=== PATIENT | male | born 1985 | race Caucasian/White ===

== ENCOUNTER 2017-02-05 18:56 | Emergency (ER) | payer OTHER ==
[~2017-02-05] VITALS: Ht 170.2 cm; Wt 65.8 kg
[~2017-02-05 18:56] MED LIST: ELIMITE 5%; GENTAK 3 MG/M3 MG/M1 OP; HYDROXYZINE HCL25 M1 PO; KEFLEX500 MG PO; NORCO 5-325 TA1 EACH PO; PERCOCET 5-3251 EACH PO
[2017-02-05] MEDS ORDERED: HYDROCODONE-AP1 EAC6 PO (21:09)
[2017-02-05] MEDS ORDERED: PROBIOTIC1 EAC1 PO (21:12)
[2017-02-05] MEDS ORDERED: PRILOSEC 20 MG20 MG PO (21:12)
[2017-02-05 21:30] VITALS: BP 124/92
== END 2017-02-05 21:39 | disposition home or self-care (01) ==
LOC: ER 18:56
DX: S00.12XA Contusion of left eyelid and periocular area, initial encounter (principal); S09.90XA Unspecified injury of head, initial encounter; F17.210 Nicotine dependence, cigarettes, uncomplicated; F10.99 Alcohol use, unspecified with unspecified alcohol-induced disorder; Z86.59 Personal history of other mental and behavioral disorders; Y04.2XXA Assault by strike against or bumped into by another person, initial encounter; Y93.89 Activity, other specified; Y92.481 Parking lot as the place of occurrence of the external cause; Y99.8 Other external cause status

== ENCOUNTER 2017-02-24 18:03 | Emergency (ER) | payer OTHER ==
[~2017-02-24] VITALS: Ht 170.2 cm; Wt 65.8 kg
[~2017-02-24 18:03] MED LIST changes: +HYDROCODONE-AP1 EAC6 PO; +PRILOSEC 20 MG20 MG PO; +PROBIOTIC1 EAC1 PO
[2017-02-24 18:04] VITALS: BP 131/80
[2017-02-24] MEDS ORDERED: DOXYCYCLINE 10100 MG PO (18:48)
[2017-02-24] MEDS ORDERED: NAPROSYN500 MG PO (18:48)
== END 2017-02-24 19:15 | disposition home or self-care (01) ==
LOC: ER 18:03
DX: S40.861A Insect bite (nonvenomous) of right upper arm, initial encounter (principal); L03.113 Cellulitis of right upper limb; F17.210 Nicotine dependence, cigarettes, uncomplicated; F10.99 Alcohol use, unspecified with unspecified alcohol-induced disorder; Z91.5 Personal history of self-harm; W57.XXXA Bitten or stung by nonvenomous insect and other nonvenomous arthropods, initial encounter; Y93.89 Activity, other specified; Y92.89 Other specified places as the place of occurrence of the external cause; Y99.8 Other external cause status

== ENCOUNTER 2017-02-27 14:02 | Emergency (ER) | payer OTHER ==
[~2017-02-27] VITALS: Ht 170.2 cm; Wt 65.8 kg
[~2017-02-27 14:02] MED LIST changes: +DOXYCYCLINE 10100 MG PO; +NAPROSYN500 MG PO
[2017-02-27] MEDS ORDERED: BACTRIM DS TAB1 EACH PO (14:28)
[2017-02-27] MEDS ORDERED: KEFLEX500 MG PO (14:28)
[2017-02-27 14:53] VITALS: BP 127/69
== END 2017-02-27 14:56 | disposition home or self-care (01) ==
LOC: ER 14:02
DX: L02.413 Cutaneous abscess of right upper limb (principal); F17.210 Nicotine dependence, cigarettes, uncomplicated; F10.99 Alcohol use, unspecified with unspecified alcohol-induced disorder; Z91.19 Patient's noncompliance with other medical treatment and regimen; Z91.5 Personal history of self-harm

== ENCOUNTER 2018-01-13 03:02 | Emergency (ER) | payer OTHER ==
[~2018-01-13] VITALS: Ht 170.2 cm; Wt 65.8 kg
[~2018-01-13 03:02] MED LIST changes: +BACTRIM DS TAB1 EACH PO
[2018-01-13] MEDS ORDERED: BACTRIM DS TAB1 EACH PO (04:47)
[2018-01-13] MEDS ORDERED: NORCO 5-325 TA1 EACH PO (04:47)
[2018-01-13] MEDS ORDERED: KEFLEX500 M1 PO (04:47)
[2018-01-13 05:03] VITALS: BP 130/80
== END 2018-01-13 05:04 | disposition home or self-care (01) ==
LOC: ER 03:02
DX: K13.0 Diseases of lips (principal); F17.210 Nicotine dependence, cigarettes, uncomplicated

== ENCOUNTER 2018-01-13 23:55 | Inpatient (IN) | payer OTHER ==
[~2018-01-13] VITALS: Ht 170.2 cm; Wt 67.7 kg
--- NOTE | ~2018-01-13 | HC ---
[facility] [place] [address] CONSULTATION Name: DARRIN BELL Buffy Room #: 351-P [facility]..#: [id number] Admission: 01/14/18 Attend Phys: Won Umanzor MD Discharge: 01/16/18 Date of : 87 Report #: [id number] THIS REPORT FOR: //name// CC: [facility] physician/PCP Won Umanzor DATE OF SERVICE: 01/16/2018 GENERAL SURGERY CONSULTATION REFERRING PROVIDER: Won Umanzor M.D. REASON FOR CONSULTATION: Lip abscess. HISTORY OF PRESENT ILLNESS: The patient is a 32-year-old male who was admitted with pain, swelling and redness to his right upper lip for several days prior to admission. The patient was initially treated with cephalexin, which was not successful and he developed lower abdominal pain radiating into his testicles, for which evaluation showed a ureteral stone as the causative factor of his discomfort. The patient has been seen by Infectious Disease and has been on appropriate antibiotic regimen and has a past history of MRSA of the right arm soft tissue wound in the past. His right upper lip wound has coalesced into what appears to be a drainable abscess and as such, we were asked to evaluate. PAST MEDICAL HISTORY: Substance abuse, TMJ and a prior suicide attempt. CURRENT MEDICATIONS: Pepcid, Flomax, Ativan, morphine, Compazine and vancomycin. ALLERGIES: No known drug allergies. SOCIAL HISTORY: He smokes 1 pack of cigarettes daily, drinks alcohol occasionally. Denies illicit drug use. FAMILY HISTORY: Reviewed and noncontributory. REVIEW OF SYSTEMS: GENERAL: The patient denies nocturnal fevers or chills. HEENT: No change in vision. No change in hearing. NECK: No swelling or difficulty swallowing. HEART: No chest pain or palpitations. LUNGS: No cough or shortness of breath. ABDOMEN: No nausea, no vomiting. GENITOURINARY: No dysuria or hematuria. ENDOCRINE: No polyuria or polydipsia. HEMATOLOGIC: No history of bleeding or easy bruising. [facility] [address] [place] [address] CONSULTATION Name: DARRIN BELL Room #: 351-P [facility] IN ..#: [id number] Admission: 01/14/18 Attend Phys: Won Umanzor MD Discharge: 01/16/18 Date of : 87 Report #: [id number] EXTREMITIES: No history of weakness or limited range of motion. NEUROLOGIC: No history of syncope or near syncopal episodes. SKIN AND INTEGUMENT: History of prior MRSA arm infection. PSYCHIATRIC: No history of anxiety or depression, but he does have a prior suicide attempt. PHYSICAL EXAMINATION: VITAL SIGNS: Temperature 98.8, pulse 66, respirations 16 and blood pressure 130/80. He is 5 feet 7 inches tall and weighs 149 pounds. GENERAL: Alert and oriented, in no acute distress. HEENT: Normocephalic, atraumatic. Pupils equal, round and reactive to light. NECK: Supple, without lymphadenopathy. Trachea midline. HEART: Regular rate and rhythm. LUNGS: Clear to auscultation bilaterally. ABDOMEN: Soft, nondistended and nontender. GENITOURINARY: Normal external male genitalia with right flank CVA tenderness. EXTREMITIES: No clubbing, cyanosis or edema. NEUROLOGIC: Cranial nerves 2-12 are grossly intact. PSYCHIATRIC: Normal mood and affect. SKIN AND INTEGUMENT: Right upper lip swelling with abscess that appears drainable at this time. LABORATORY AND X-RAY DATA: CBC shows white blood cell count of 11.3 thousand, hemoglobin 14.3 and platelets 252,000. Creatinine 1.2. MRSA positive. Drug screen positive for methamphetamines, opiates and marijuana. ASSESSMENT AND PLAN: A 32-year-old male who appears to be a drug abuser and has prior methicillin-resistant Staphylococcus aureus abscesses, who presents with right facial swelling that has now coalesced and what appears to be a drainable abscess of the right upper lip. In addition, the patient has a ureteral stone, for which Urology is managing the patient. RECOMMENDATIONS: Recommendation at this time is to continue current care with IV fluids and antibiotics per the direction of Infectious Disease. We will make him n.p.o. after midnight and proceed to the operating room for incision and drainage of this lip abscess at the first available opportunity. I sincerely appreciate this consult. We will follow along and leave any further recommendations in the patient's chart as appropriate. <ELECTRONICALLY SIGNED> By: Onel Ghosh MD, FACS 01/17/18 0737 [id number] Onel Ghosh MD, FACS /nt
--- NOTE | ~2018-01-13 | HC ---
[facility] [place] [address] CONSULTATION Name: DARRIN BELL Buffy Room #: 351-P [facility] IN M.R.#: [id number] Admission: 01/14/18 Attend Phys: Won Umanzor MD Discharge: Date of : 87 Report #: [id number] THIS REPORT FOR: //name// CC: [facility] physician/PCP Won Umanzor DATE OF SERVICE: 01/14/2018 REASON FOR CONSULTATION: I was asked to evaluate concerning right facial soft tissue infection. HISTORY OF PRESENT ILLNESS: The patient is a 32-year-old who was admitted with pain, swelling and redness involving his right upper lip. He had been noticing this onset 4 days ago. He had been to the Emergency Room, placed on cephalexin. No improvement, returns now not only with facial swelling, but also pain in his abdomen that radiates down into his testicles. This was acute onset. He has had blood in his urine. CT scan shows evidence of a ureteral stone. His antibiotic treatment has included Bactrim and cephalexin. He has had a previous I and D of his right arm soft tissues several months ago with methicillin-resistant Staphylococcus aureus. REVIEW OF SYSTEMS: Notes no headache, cough, sputum, nausea, vomiting, diarrhea. He does street drugs with drug screen positive for marijuana, methamphetamines and opiates. ALLERGIES: None known. MEDICATIONS: As noted on his MAR, which were reviewed, now on clindamycin. PAST MEDICAL HISTORY: Suicide attempt, TMJ, substance abuse, abscess as noted. FAMILY HISTORY: Noncontributory. SOCIAL HISTORY: As noted above with the addition of tobacco use and past alcohol use. Currently unemployed. PHYSICAL EXAMINATION: VITAL SIGNS: He is afebrile, hemodynamically stable. GENERAL: Alert and cooperative. SKIN: Hands were very dirty with grease. HEENT: Right facial swelling involving the right upper lip. Several areas of excoriation superior to this on the cheek. Dentition in fair repair. Mouth is otherwise unremarkable. Neck was supple. Eyes unremarkable. Cranial nerves intact. NECK: Supple. No thyromegaly or mass. CHEST: Clear. [facility] [address] [place] [address] CONSULTATION Name: DARRIN BELL Room #: 351-P [facility] IN .R.#: [id number] Admission: 01/14/18 Attend Phys: Won Umanzor MD Discharge: Date of : 87 Report #: [id number] CARDIOVASCULAR: Heart regular. No murmurs, gallop or rub. ABDOMEN: Soft, nontender, no hepatosplenomegaly or mass appreciated. Some tenderness in the right CVA region. EXTREMITIES: Unremarkable. LABORATORY STUDIES: CT scan shows mild right hydronephrosis and hydroureter secondary to a 3.6 mm calculus impacted in the distal right ureter. CT of the face shows extensive soft tissue edema throughout the right aspect of the face and upper lip region. No definite abscess. Drug screen as noted above. Urinalysis with 2+ ketones, 3+ blood, rbc's. Hemoglobin 15.8, white count 22,000, platelet count 293,000. Sodium 136, potassium 3.4, bicarbonate 23, creatinine 1.5. Liver function test normal. IMPRESSION: A 32-year-old with obstructed ureter from a kidney stone with hematuria and acute kidney injury. In addition, has soft tissue infection of his right upper lip. CT scan shows no definite abscess. On evaluation, there is fluctuant area, but no definite abscess yet appreciated. He has diffuse erythema and thickening throughout the right upper lip region. I am suspecting methicillin-resistant Staphylococcus aureus, most likely in etiology. PLAN: Would recommend vancomycin and apply heat to the region. Likely need incision and drainage procedure. We will see how it looks tomorrow and have General Surgery evaluate. As far as his kidney stone goes, he will continue with hydration, pain management. Hopefully, he will pass this. Would repeat a CBC and chemistry in the morning. <ELECTRONICALLY SIGNED> By: Dong Garcia MD 01/15/18 1130 [id number] Dong Garcia MD /nt
[~2018-01-13 23:55] MED LIST changes: +KEFLEX500 M1 PO
[2018-01-14 00:25] LABS: HEMATOCRIT 45.5 % (42.0-52.0); HEMOGLOBIN 15.7 gm/dL (14.0-18.0); MCH 28.3 pg (26.0-34.0); MCHC 34.4 g/dL (28.0-37.0); MCV 82.3 fL (80.0-100.0); PLATELET COUNT 293 thou/uL (150-400); RBC 5.52 mil/uL (4.50-6.00); RDW 13.6 % (10.5-14.5)
[2018-01-14 00:34] LABS: CALCIUM 9.3 mg/dL (8.5-10.1); CREATININE 1.5 mg/dL (0.7-1.3); POTASSIUM 3.4 mmol/L (3.5-5.1)
[2018-01-14 00:40] LABS: ALBUMIN 4.4 g/dL (3.4-5.0); TOTAL BILIRUBIN 0.8 mg/dL (<0.1-1.0); TOTAL PROTEIN 7.7 g/dL (6.4-8.2)
[2018-01-14 00:58] LABS: ABSOLUTE NEUTROPHILS 19.8 thou/uL (1.4-8.2)
[2018-01-14 03:03] VITALS: BP 174/98
[2018-01-14 03:11] VITALS: BP 165/108
[2018-01-14 03:36] VITALS: BP 156/101
[2018-01-14 08:20] VITALS: BP 176/108
[2018-01-14 11:54] LABS: URINE BILIRUBIN NEGATIVE (Negative); URINE BLOOD 3+ (Negative); URINE CLARITY CLEAR; URINE COLOR YELLOW; URINE GLUCOSE-RANDOM* NEGATIVE (Negative); URINE KETONES 2+ (Negative); URINE LEUKOCYTES-REFLEX NEGATIVE (Negative); URINE NITRITE-REFLEX NEGATIVE (Negative); URINE PROTEIN (DIPSTICK) NEGATIVE (Negative); URINE SPECIFIC GRAVITY 1.015 (1.005-1.035); URINE UROBILINOGEN 0.2 E.U./dl (0.2-1.0)
[2018-01-14 12:01] LABS: MUCUS 0-3 Light strn/LPF (None Seen); SQUAMOUS None Seen /LPF (0-3)
[2018-01-14 12:02] LABS: AMP/METHAMP POSITIVE (Negative); BACTERIA-REFLEX 1-9 Few /HPF (None Seen); BARBITURATES Negative (Negative); BENZODIAZEPINES Negative (Negative); COCAINE Negative (Negative); METHADONE Negative (Negative); OPIATES POSITIVE (Negative); PCP Negative (Negative); URINE RBC >20 Many /HPF (0-2); URINE WBC-REFLEX 0-5 Rare /HPF (0-5)
[2018-01-14 12:04] LABS: CASTS None Seen /LPF (None Seen)
[2018-01-14 12:05] LABS: CRYSTALS None Seen /LPF (None Seen)
[2018-01-14 16:10] VITALS: BP 157/100
[2018-01-14 19:38] VITALS: BP 157/93
[2018-01-15 04:07] VITALS: BP 137/81
[2018-01-15 05:59] LABS: ABSOLUTE NEUTROPHILS 12.7 thou/uL (1.4-8.2); BASOPHILS 0.2 % (0.0-2.0); EOSINOPHILS 0.6 % (0.0-3.0); HEMATOCRIT 43.6 % (42.0-52.0); HEMOGLOBIN 15.1 gm/dL (14.0-18.0); LYMPHOCYTES 11.5 % (24.0-44.0); MCH 28.7 pg (26.0-34.0); MCHC 34.8 g/dL (28.0-37.0); MCV 82.5 fL (80.0-100.0); PLATELET COUNT 260 thou/uL (150-400); POLYS 78.7 % (36.0-66.0); RBC 5.28 mil/uL (4.50-6.00); RDW 13.4 % (10.5-14.5); WBC 16.2 thou/uL (4.0-11.0)
[2018-01-15 06:17] LABS: CALCIUM 8.8 mg/dL (8.5-10.1); CREATININE 1.5 mg/dL (0.7-1.3)
[2018-01-15 07:30] VITALS: BP 158/109
[2018-01-15 11:12] LABS: CALCIUM 8.6 mg/dL (8.5-10.1); CREATININE 1.6 mg/dL (0.7-1.3); POTASSIUM 4.1 mmol/L (3.5-5.1)
[2018-01-15 11:17] LABS: ALBUMIN 3.5 g/dL (3.4-5.0); TOTAL BILIRUBIN 0.4 mg/dL (<0.1-1.0); TOTAL PROTEIN 6.8 g/dL (6.4-8.2)
[2018-01-15 15:15] VITALS: BP 143/87
[2018-01-15 19:50] VITALS: BP 140/78
[2018-01-16 04:10] VITALS: BP 121/66
[2018-01-16 05:52] LABS: HEMATOCRIT 41.5 % (42.0-52.0); HEMOGLOBIN 14.3 gm/dL (14.0-18.0); MCH 28.2 pg (26.0-34.0); MCHC 34.5 g/dL (28.0-37.0); MCV 81.9 fL (80.0-100.0); RBC 5.07 mil/uL (4.50-6.00); RDW 13.2 % (10.5-14.5); WBC 11.3 thou/uL (4.0-11.0)
[2018-01-16 06:02] LABS: CALCIUM 8.1 mg/dL (8.5-10.1); CREATININE 1.2 mg/dL (0.7-1.3); MAGNESIUM 1.7 mg/dL (1.8-2.4); POTASSIUM 4.3 mmol/L (3.5-5.1)
[2018-01-16 08:00] VITALS: BP 130/80
[2018-01-16 16:00] VITALS: BP 130/85
== END 2018-01-16 20:11 | disposition left against medical advice (07) | DRG 683 ==
LOC: ER 23:55 → EROBS 01-14 02:52 → 3W 01-14 02:52
PROVIDERS: Emergency Medicine; Internal Medicine; Nurse Practitioner Acute Care; Specialist
DX: N17.9 Acute kidney failure, unspecified (principal); N20.2 Calculus of kidney with calculus of ureter; K13.0 Diseases of lips; F17.210 Nicotine dependence, cigarettes, uncomplicated; E87.6 Hypokalemia; I10 Essential (primary) hypertension; Z91.5 Personal history of self-harm; Z79.899 Other long term (current) drug therapy
CPT/HCPCS: 10879

== ENCOUNTER 2018-05-01 18:38 | Inpatient (IN) | payer OTHER ==
[~2018-05-01] VITALS: Ht 170.2 cm; Wt 65.8 kg
--- NOTE | ~2018-05-01 | HC ---
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 He has been working vigorously with his hands and apparently scratched or lacerated the left index finger about 3 days ago. He has developed some redness, warmth and mild purulent drainage. The index finger has become somewhat red and puffy. He was evaluated in the Emergency Room last evening and felt to have a soft tissue infection. I discussed plan with the Emergency Room physician and suggested going ahead with culture and IV antibiotics and then possible wound debridement the following morning. At the time of my evaluation this morning, he is somewhat agitated and anxious. He states his hand is much, much better already after 12 hours of IV antibiotics. He notes he is moving the digit with much less discomfort and has minimal pain about the hand and no pain at the forearm. He is anxious, therefore for discharge. OBJECTIVE: It does appear that he has some cellulitis at the left index finger. There is a small transverse laceration just proximal to the PIP joint at the dorsal aspect. This area of the digit is mildly puffy; however, he seems to have good function of both the extensor tendon and flexor tendon. He has good range of motion with no instability and only mild discomfort. There is very minimal redness over the dorsum of the hand and no redness in the palm. There is no evidence of flexor tenosynovitis. There is evidence of mild cellulitis involving the dorsum of the hand. He notes a bit of discomfort in the forearm, but there is no redness, warmth or swelling in that region. I have explained to the patient that this may be a generalized cellulitis, which will respond with IV antibiotics. However, given his sense of some purulent drainage and the current appearance, I would favor a limited surgical debridement at least in the area of laceration. I have encouraged this and suggested we proceed this morning and have made arrangements for OR time for a limited debridement. Initially, he agreed with this and his significant other also agreed, although she noted he was somewhat anxious and may end up leaving without further treatment. I encouraged going ahead with at least continued IV antibiotics and recommended a limited incision and debridement as well. Following our discussion, I proceeded with another case in the operating room. During that case I was informed the patient had elected to leave the hospital against medical advice. I am unaware whether he will continue on any form of antibiotics and have deferred that issue to the hospitalist and the Infectious Disease wedding consultant. I [address] [address] CONSULTATION Name: DARRIN BELL Room #: 422-P [facility] IN M.R.#: [id number] Admission: 05/01/18 Attend Phys: Kati Hogan MD Discharge: 05/02/18 Date of : 87 Report #: [id number] am hopeful that this will be sufficient to resolve the infection, but I am at least somewhat concerned that there may be involvement at the PIP joint or localized fluid collection that might benefit from a debridement. I feel the patient and his family understand this and he has elected to avoid any surgery and go ahead with discharge from the hospital against medical advice. I will be happy to see him if he fails to respond and further treatment may become necessary. By: [id number] Marv Gee MD /debbie
[2018-05-01 18:47] VITALS: BP 149/93
[2018-05-01 19:31] LABS: ABSOLUTE NEUTROPHILS 14.4 thou/uL (1.4-8.2); BASOPHILS 0.3 % (0.0-2.0); EOSINOPHILS 0.8 % (0.0-3.0); HEMATOCRIT 45.7 % (42.0-52.0); HEMOGLOBIN 15.6 gm/dL (14.0-18.0); LYMPHOCYTES 14.3 % (24.0-44.0); MCH 28.2 pg (26.0-34.0); MCHC 34.2 g/dL (28.0-37.0); MCV 82.4 fL (80.0-100.0); MONOCYTES 6.5 % (1.0-8.0); PLATELET COUNT 339 thou/uL (150-400); POLYS 78.1 % (36.0-66.0); RBC 5.55 mil/uL (4.50-6.00); RDW 13.4 % (10.5-14.5); WBC 18.5 thou/uL (4.0-11.0)
[2018-05-01 19:39] LABS: CALCIUM 9.2 mg/dL (8.5-10.1); POTASSIUM 3.7 mmol/L (3.5-5.1)
[2018-05-01 19:46] LABS: ALBUMIN 3.7 g/dL (3.4-5.0); TOTAL BILIRUBIN 0.3 mg/dL (<0.1-1.0); TOTAL PROTEIN 7.5 g/dL (6.4-8.2)
[2018-05-01 21:06] VITALS: BP 124/76
[2018-05-01 21:34] VITALS: BP 124/76
[2018-05-02 06:04] LABS: HEMATOCRIT 40.4 % (42.0-52.0); MCH 28.1 pg (26.0-34.0); MCHC 33.2 g/dL (28.0-37.0); MCV 84.5 fL (80.0-100.0); RBC 4.78 mil/uL (4.50-6.00); RDW 13.4 % (10.5-14.5); WBC 12.3 thou/uL (4.0-11.0)
[2018-05-02 06:06] LABS: HEMOGLOBIN 13.4 gm/dL (14.0-18.0)
[2018-05-02 06:12] LABS: CALCIUM 8.3 mg/dL (8.5-10.1); POTASSIUM 3.7 mmol/L (3.5-5.1)
[2018-05-02 06:15] LABS: PROTIME 10.9 Seconds (9.3-11.4)
== END 2018-05-02 09:16 | disposition left against medical advice (07) | DRG 549 ==
LOC: ER 18:38 → EROBS 20:29 → 4E 20:29
PROVIDERS: Nurse Practitioner Family; Physician Assistant
DX: M00.9 Pyogenic arthritis, unspecified (principal); L03.114 Cellulitis of left upper limb; S61.211A Laceration without foreign body of left index finger without damage to nail, initial encounter; D72.829 Elevated white blood cell count, unspecified; F17.210 Nicotine dependence, cigarettes, uncomplicated; Y93.89 Activity, other specified; W45.8XXA Other foreign body or object entering through skin, initial encounter; Y92.89 Other specified places as the place of occurrence of the external cause; Y99.8 Other external cause status; Z86.14 Personal history of Methicillin resistant Staphylococcus aureus infection; Z71.6 Tobacco abuse counseling; Z23 Encounter for immunization; Z79.899 Other long term (current) drug therapy
CPT/HCPCS: 10084